=== PATIENT | female | born 1970 | race Caucasian/White ===

== ENCOUNTER 2016-12-09 07:06 | Emergency (ER) | payer OTHER ==
[~2016-12-09 07:06] MED LIST: ATEN50TA PO; ATOR20TA58 PO; FURO20TA3 PO; LEVE500T56 PO; LEVO50TA5 PO; LISI40TA PO; METF500T4 PO; SERT100T PO; SPIR50TA2 PO
[2016-12-09] MEDS ORDERED: ADENOSINE 6 MG/2 ML VIAL IV ONE (07:20)
[2016-12-09] MEDS: ADENOSINE 6 MG/2 ML VIAL IV ONE (07:33)
[2016-12-09 07:58] LABS: HEMOGLOBIN ISTAT 14.3 gm/dL; POTASSIUM ISTAT 3.6 mmol/L (3.5-5.0)
[2016-12-09 07:58] LABS: BASO # 0.1 x10^3/uL (0.0-0.2); BASO % 1 % (0-3); EOS # 0.2 x10^3/uL (0.0-0.7); EOS % 2 % (0-3); HEMATOCRIT 41.9 % (36.0-47.0); HEMOGLOBIN 13.6 g/dL (12.0-15.5); LYMPH # 2.5 x10^3/uL (1.0-4.8); LYMPH % 27 % (24-48); MEAN CORPUSCULAR HEMOGLOBIN 27 pg (25-35); MEAN CORPUSCULAR HGB CONC 33 g/dL (31-37); MEAN CORPUSCULAR VOLUME 83 fL (79-100); MONO # 0.5 x10^3/uL (0.0-1.1); MONO % 5 % (0-9); NEUT # 5.9 x10^3uL (1.8-7.7); NEUT % 65 % (31-73); PLATELET COUNT 328 x10^3/uL (140-400); RED BLOOD COUNT 5.05 x10^6/uL (3.50-5.40); RED CELL DISTRIBUTION WIDTH 15.3 % (11.5-14.5); WHITE BLOOD COUNT 9.1 x10^3/uL (4.0-11.0)
--- NOTE | 2016-12-09 08:21 | EKG ---
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
--- NOTE | 2016-12-09 08:22 | EKG ---
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
[2016-12-09 08:30] VITALS: BP 110/63
--- NOTE | 2016-12-13 07:38 | ED.ADGEN ---
Past History Past Medical History: Depression, Diabetes, Hypertension, Seizure, Other Past Surgical History: Other Alcohol Use: Rarely Drug Use: None Adult General Chief Complaint Chief Complaint Palpitations HPI HPI Patient is a [ She has a 46-year-old female with history of PSVT who presents with palpitations , abrupt onset approximately 1 hour prior to ED arrival. Patient has tried various techniques to slow heart rate which have been unsuccessful. She is compliant with all her medications. Denies chest pain, shortness of breath, dizziness or lightheadedness. No other symptoms or complaints. Review of Systems Review of Systems ROS as per HPI. Current Medications Current Medications Current Medications Medications (Trade) Dose Ordered Sig/Mecca Start Time Stop Time Status Last Admin Dose Admin Adenosine (Adenocard) 12 mg 1X ONCE 12/09/16 08:00 12/09/16 08:01 DC 12/09/16 07:33 12 MG Allergies Allergies Allergies Coded Allergies Type Severity Reaction Last Updated Verified No Known Drug Allergies 04/22/16 No Physical Exam Physical Exam Constitutional: Well developed, well nourished, no acute distress, non-toxic appearance. HENT: Normocephalic, atraumatic, bilateral external ears normal, oropharynx moist, no oral exudates, nose normal. Eyes: PERRLA, EOMI, conjunctiva normal. Neck: Normal range of motion, no tenderness, supple. Cardiovascular: Tachycardia. Lungs & Thorax: Bilateral breath sounds clear to auscultation. Abdomen: Bowel sounds normal, soft, no tenderness. Skin: Warm, dry, no erythema. Back: No tenderness. Extremities: No tenderness. Neurologic: Alert and oriented X 3, normal motor function, normal sensory function, no focal deficits noted. Psychologic: Affect normal, judgement normal, mood normal. Current Patient Data Vital Signs Vital Signs Date Time Temp Pulse Resp B/P Pulse Ox O2 Delivery O2 Flow Rate FiO2 12/09/16 08:30 88 16 110/63 98 12/09/16 07:06 97.9 Room Air Lab Results Laboratory Tests Test 12/09/16 07:35 12/09/16 07:43 12/09/16 07:46 White Blood Count 9.1x10^3/uL (4.0-11.0) Red Blood Count 5.05x10^6/uL (3.50-5.40) Hemoglobin 13.6g/dL (12.0-15.5) Hematocrit 41.9% (36.0-47.0) Mean Corpuscular Volume 83fL (79-100) Mean Corpuscular Hemoglobin 27pg (25-35) Mean Corpuscular Hemoglobin Concent 33g/dL (31-37) Red Cell Distribution Width 15.3% (11.5-14.5) H Platelet Count 328x10^3/uL (140-400) Neutrophils (%) (Auto) 65% (31-73) Lymphocytes (%) (Auto) 27% (24-48) Monocytes (%) (Auto) 5% (0-9) Eosinophils (%) (Auto) 2% (0-3) Basophils (%) (Auto) 1% (0-3) Neutrophils # (Auto) 5.9x10^3uL (1.8-7.7) Lymphocytes # (Auto) 2.5x10^3/uL (1.0-4.8) Monocytes # (Auto) 0.5x10^3/uL (0.0-1.1) Eosinophils # (Auto) 0.2x10^3/uL (0.0-0.7) Basophils # (Auto) 0.1x10^3/uL (0.0-0.2) POC Hemoglobin 14.3gm/dL POC Hematocrit 42% POC Sodium 137mmol/L (135-145) POC Potassium 3.6mmol/L (3.5-5.0) POC Chloride 99mmol/L (98-110) POC Total CO2 20mmol/L (23-32) L Anion Gap 23mmol/L (6-14) H POC Blood Urea Nitrogen 12mg/dL (8-26) POC Creatinine 0.9mg/dL (0.5-1.4) Glucose Level 212mg/dL (60-99) H POC Ionized Calcium (Bryan) 1.13mmol/L (1.13-1.32) POC Troponin I 0.01ng/ml (<0.08) EKG EKG [EKG: SVT EKG #2: NSR] Radiology/Procedures Radiology/Procedures [] Impressions: PSVT Course & Med Decision Making Course & Med Decision Making Pertinent Labs and Imaging studies reviewed. (See chart for details) [Successful cardioversion. PCP follow up. ] Final Impression Final Impression SVT] Problems: Rose Disclaimer Rose Disclaimer This electronic medical record was generated, in whole or in part, using a voice recognition dictation system. SAMMY RAMIREZ DO Dec 13, 2016 07:38
== END 2016-12-09 08:30 | disposition home or self-care (01) ==
LOC: ER 07:06
DX: I47.1 Supraventricular tachycardia (principal); I10 Essential (primary) hypertension; E11.9 Type 2 diabetes mellitus without complications
CPT/HCPCS: 36415; 80047; 84484; 85027; 93005; 96374; 99284; J0153

== ENCOUNTER 2017-07-09 00:17 | Observation (INO) | payer OTHER ==
[~2017-07-09] VITALS: Ht 175.3 cm; Wt 169.4 kg
[2017-07-09] MEDS ORDERED: ASPIRIN 81 MG TAB.CHEW PO ONE (00:45)
[2017-07-09] MEDS ORDERED: ADENOSINE 6 MG/2 ML VIAL IV ONE ×2 (00:45)
[2017-07-09] MEDS ORDERED: ENOXAPARIN ** NOTE DOSE ** SYRINGE SQ ONE (01:30)
[2017-07-09] MEDS ORDERED: METOPROLOL TARTRATE 5 MG/5 ML VIAL. IV ONE (01:30)
[2017-07-09 01:55] LABS: BASO % 1 % (0-3); EOS # 0.2 x10^3/uL (0.0-0.7); EOS % 2 % (0-3); HEMATOCRIT 36.8 % (36.0-47.0); HEMOGLOBIN 12.6 g/dL (12.0-15.5); LYMPH # 2.3 x10^3/uL (1.0-4.8); LYMPH % 36 % (24-48); MEAN CORPUSCULAR HEMOGLOBIN 28 pg (25-35); MEAN CORPUSCULAR HGB CONC 34 g/dL (31-37); MEAN CORPUSCULAR VOLUME 83 fL (79-100); MONO # 0.4 x10^3/uL (0.0-1.1); MONO % 7 % (0-9); NEUT # 3.4 x10^3uL (1.8-7.7); NEUT % 54 % (31-73); PLATELET COUNT 221 x10^3/uL (140-400); RED BLOOD COUNT 4.43 x10^6/uL (3.50-5.40); RED CELL DISTRIBUTION WIDTH 15.2 % (11.5-14.5); WHITE BLOOD COUNT 6.3 x10^3/uL (4.0-11.0)
[2017-07-09 02:02] LABS: ALBUMIN 3.2 g/dL (3.4-5.0); ALBUMIN/GLOBULIN RATIO 0.8 (1.0-1.7); ALK PHOS 118 U/L (46-116); ALT (SGPT) 29 U/L (14-59); ANION GAP 13 (6-14); AST (SGOT) 22 U/L (15-37); BLOOD UREA NITROGEN 20 mg/dL (7-20); BUN/CREATININE RATIO 14 (6-20); CALCIUM 8.8 mg/dL (8.5-10.1); CARBON DIOXIDE 24 mmol/L (21-32); CHLORIDE 101 mmol/L (98-107); CREATINE KINASE 57 U/L (26-192); CREATININE 1.4 mg/dL (0.6-1.0); DIRECT BILIRUBIN 0.1 mg/dL (0.0-0.2); GFR 40.5; GLUCOSE 203 mg/dL (70-99); LIPASE 192 U/L (73-393); MAGNESIUM 1.6 mg/dL (1.8-2.4); POTASSIUM 3.3 mmol/L (3.5-5.1); SODIUM 138 mmol/L (136-145); TOTAL BILIRUBIN 0.4 mg/dL (0.2-1.0); TOTAL PROTEIN 7.1 g/dL (6.4-8.2)
[2017-07-09] MEDS ORDERED: IV NORMAL SALINE 1,000ML 1,000 ML IV ONE (02:15)
[2017-07-09] MEDS ORDERED: MAGNESIUM HYDROXIDE 2,400 MG/30 ML ORAL.SUSP. PO ONE (02:30)
[2017-07-09] MEDS ORDERED: POTASSIUM CHLORIDE 20 MEQ/15 ML ORAL LIQUID. PO ONE (02:30)
[2017-07-09] MEDS ORDERED: CONTRAST GIVEN MC PRN (04:00)
[2017-07-09] MEDS ORDERED: IOHEXOL 300 MG/ML 75 ML VIAL. IV ONE (04:00)
--- NOTE | 2017-07-09 04:20 | ED.ADGEN ---
Past History Past Medical History: Arrhythmia, CHF, Depression, Diabetes, Hypertension, Seizure Past Surgical History: Other Alcohol Use: None Drug Use: None Adult General Chief Complaint Chief Complaint ".. I ve got a fast heart rate.. It came on all sudden... I ve had it before.. and they gave me meds IV.. and it stopped.. they told me I could get some ablation to prevent it.. but right now I am on meds for it...".." I got some chest discomfort this time..>" [facility] HPI Patient is a 47 year old female who presents with sudden onset of SVT, CP and dyspnea. Pt. has previous history of SVT, diastolic dysfunction, CHF, hypertension, seizure disorder and diabetes. Patient on presentation has heart rate in the 170 range. Patient monitor is consistent with supraventricular tachycardia. Patient denies any changes in meds for noncompliance. Patient denies any excessive intake of caffeine. Patient was previously followed with for cardiology and follows with Dr. Grove as primary. Procedure note- patient received 6 mg of adenosine IV push with resolution of her supraventricular tachycardia to a sinus tachycardia at 108 shortly after IV established and on monitor. Patient however remained borderline hypotensive so further workup and IV fluid bolus. Review of Systems Review of Systems Constitutional: Denies fever or chills [] Eyes: Denies change in visual acuity, redness, or eye pain [] HENT: Denies nasal congestion or sore throat [] Respiratory: Complaints of shortness of breath [] Cardiovascular: No additional information not addressed in HPI []complaints of dyspnea, chest discomfort and tachycardia GI: Denies abdominal pain, nausea, vomiting, bloody stools or diarrhea [] : Denies dysuria or hematuria [] Musculoskeletal: Denies back pain or joint pain [] Integument: Denies rash or skin lesions [] Neurologic: Denies headache, focal weakness or sensory changes [] Endocrine: Denies polyuria or polydipsia [] Family History Family History Noncontributory Current Medications Current Medications Current Medications Medications (Trade) Dose Ordered Sig/Mecca Start Time Stop Time Status Last Admin Dose Admin Adenosine (Adenocard) 12 mg 1X ONCE 07/09/17 00:45 07/09/17 00:46 DC Aspirin (Children'S Aspirin) 324 mg 1X ONCE 07/09/17 00:45 07/09/17 00:46 DC 07/09/17 01:28 324 MG Enoxaparin Sodium (Lovenox 80mg Syringe) 160 mg 1X ONCE 07/09/17 01:30 07/09/17 01:31 DC 07/09/17 01:56 160 MG Info (Do NOT chart on this entry -- for MONITORING) 1 each PRN DAILY PRN 07/09/17 04:00 07/09/17 16:08 DC Iohexol (Omnipaque 300 Mg/ml) 75 ml 1X ONCE 07/09/17 04:00 07/09/17 04:01 DC 07/09/17 04:17 75 ML Magnesium Hydroxide (Milk Of Magnesia) 2,400 mg 1X ONCE 07/09/17 02:30 07/09/17 02:57 DC 07/09/17 02:46 2,400 MG Metoprolol Tartrate (Lopressor) 5 mg 1X ONCE 07/09/17 01:30 07/09/17 01:31 DC 07/09/17 05:03 2.5 MG Potassium Chloride (KCl Oral Soln) 40 meq 1X ONCE 07/09/17 02:30 07/09/17 02:57 DC 07/09/17 02:46 40 MEQ Sodium Chloride 1,000 ml @ 1,000 mls/hr 1X ONCE 07/09/17 02:15 07/09/17 03:14 DC 07/09/17 02:15 1,000 MLS/HR See nursing for home meds Allergies Allergies Allergies Coded Allergies Type Severity Reaction Last Updated Verified No Known Drug Allergies 04/22/16 No Physical Exam Physical Exam Constitutional: in acute distress, non-toxic appearance. [] HENT: Normocephalic, atraumatic, bilateral external ears normal, oropharynx moist, no oral exudates, nose normal. [] Eyes: PERRLA, EOMI, conjunctiva normal, no discharge. [] Neck: Normal range of motion, no tenderness, supple, no stridor. [] Cardiovascular: Supraventricular tachycardia by monitor,no murmur [] Lungs & Thorax: Bilateral breath sounds clear to auscultation [] Abdomen: Bowel sounds normal, soft, no tenderness, no masses, no pulsatile masses. [Morbidly obese. Skin: Warm, diaphoretic, no erythema, no rash. [] Back: No tenderness, no CVA tenderness. [] Extremities: No tenderness, no cyanosis, no clubbing, ROM intact, ankle edema. [ ] Neurologic: Alert and oriented X 3, normal motor function, normal sensory function, no focal deficits noted. [] Psychologic: Affect anxious, judgement normal, mood normal. [] Current Patient Data Vital Signs Vital Signs Date Time Temp Pulse Resp B/P (MAP) Pulse Ox O2 Delivery O2 Flow Rate FiO2 07/09/17 05:27 81 18 109/68 (82) 98 07/09/17 00:17 98.1 Lab Results Laboratory Tests Test 07/09/17 01:20 07/09/17 04:25 White Blood Count 6.3 x10^3/uL (4.0-11.0) Red Blood Count 4.43 x10^6/uL (3.50-5.40) Hemoglobin 12.6 g/dL (12.0-15.5) Hematocrit 36.8 % (36.0-47.0) Mean Corpuscular Volume 83 fL (79-100) Mean Corpuscular Hemoglobin 28 pg (25-35) Mean Corpuscular Hemoglobin Concent 34 g/dL (31-37) Red Cell Distribution Width 15.2 % (11.5-14.5) H Platelet Count 221 x10^3/uL (140-400) Neutrophils (%) (Auto) 54 % (31-73) Lymphocytes (%) (Auto) 36 % (24-48) Monocytes (%) (Auto) 7 % (0-9) Eosinophils (%) (Auto) 2 % (0-3) Basophils (%) (Auto) 1 % (0-3) Neutrophils # (Auto) 3.4 x10^3uL (1.8-7.7) Lymphocytes # (Auto) 2.3 x10^3/uL (1.0-4.8) Monocytes # (Auto) 0.4 x10^3/uL (0.0-1.1) Eosinophils # (Auto) 0.2 x10^3/uL (0.0-0.7) Basophils # (Auto) 0.0 x10^3/uL (0.0-0.2) Prothrombin Time 11.4 SEC (9.4-11.4) Prothrombin Time INR 1.1 (0.9-1.1) PTT 24 SEC (23-33) D-Dimer (Brittany) 3.02 mg/L (0.00-0.50) H Sodium Level 138 mmol/L (136-145) Potassium Level 3.3 mmol/L (3.5-5.1) L Chloride Level 101 mmol/L (98-107) Carbon Dioxide Level 24 mmol/L (21-32) Anion Gap 13 (6-14) Blood Urea Nitrogen 20 mg/dL (7-20) Creatinine 1.4 mg/dL (0.6-1.0) H Estimated GFR (Cockcroft-Gault) 40.5 BUN/Creatinine Ratio 14 (6-20) Glucose Level 203 mg/dL (70-99) H Calcium Level 8.8 mg/dL (8.5-10.1) Magnesium Level 1.6 mg/dL (1.8-2.4) L Total Bilirubin 0.4 mg/dL (0.2-1.0) Direct Bilirubin 0.1 mg/dL (0.0-0.2) Aspartate Amino Transferase (AST) 22 U/L (15-37) Alanine Aminotransferase (ALT) 29 U/L (14-59) Alkaline Phosphatase 118 U/L (46-116) H Creatine Kinase 57 U/L (26-192) Creatine Kinase MB (Mass) < 0.5 ng/mL (0.0-3.6) Creatine Kinase MB Relative Index 0.9 % (0-4) Troponin I Quantitative < 0.017 ng/mL (0-0.055) CI-Oqq-Z-Type Natriuretic Peptide 106 pg/mL (0-124) Total Protein 7.1 g/dL (6.4-8.2) Albumin 3.2 g/dL (3.4-5.0) L Albumin/Globulin Ratio 0.8 (1.0-1.7) L Lipase 192 U/L (73-393) Thyroid Stimulating Hormone (TSH) 5.858 uIU/mL (0.358-3.740) Urine Collection Type Unknown Urine Color Straw Urine Clarity Hazy Urine pH 6.5 Urine Specific [place] 1.010 Urine Protein Neg (NEG-TRACE) Urine Glucose (UA) Neg mg/dL (NEG) Urine Ketones (Stick) Neg mg/dL (NEG) Urine Blood Trace (NEG) Urine Nitrite Neg (NEG) Urine Bilirubin Neg (NEG) Urine Urobilinogen Dipstick 0.2 mg/dL (0.2 mg/dL) Urine Leukocyte Esterase Large (NEG) Urine RBC 3-5 /HPF (0-2) Urine WBC 11-20 /HPF (0-4) Urine Squamous Epithelial Cells Mod /LPF Urine Bacteria Few /HPF (0-FEW) Urine Mucus Slight /LPF Urine Opiates Screen Neg (NEG) Urine Methadone Screen Neg (NEG) Urine Barbiturates Neg (NEG) Urine Phencyclidine Screen Neg (NEG) Urine Amphetamine/Methamphetamine Neg (NEG) Urine Benzodiazepines Screen Neg (NEG) Urine Cocaine Screen Neg (NEG) Urine Cannabinoids Screen Neg (NEG) Urine Ethyl Alcohol Neg (NEG) EKG EKG My interpretation of initial EKG shows a supraventricular tachycardia heart 67 bpm. Does have a strain pattern. My interpretation of second EKG shows a sinus tachycardia at 108. No findings of acute morphology. Radiology/Procedures Radiology/Procedures My interpretation of chest x-ray shows borderline cardiomegaly. Mild cephalization.[] CT chest shows a left upper lobe pulmonary embolism Course & Med Decision Making Course & Med Decision Making Pertinent Labs and Imaging studies reviewed. (See chart for details) Discussed presentation, testing and treatment plan with Dr. Roa. Wiil admit for US legs, cardiology consult and serial trops. . [] Final Impression Final Impression 1. Supraventricular tachycardia 2. Diabetes 3. Hypokalemia 4. Elevated creatinine 5. Elevated d-dimer[] 6. Left upper lobe pulmonary embolism Problems: Dragon Disclaimer Dragon Disclaimer This electronic medical record was generated, in whole or in part, using a voice recognition dictation system. MOSES VELÁSQUEZ MD Jul 09, 2017 04:20
[2017-07-09 05:00] LABS: BARBITURATES NEG (NEG); BENZODIAZEPINES NEG (NEG); BILIRUBIN,URINE NEG (NEG); CANNABINOIDS NEG (NEG); CLARITY,URINE HAZY; COCAINE NEG (NEG); COLOR,URINE STRAW; GLUCOSE,URINE NEG (NEG); METHADONE NEG (NEG); NITRITE,URINE NEG (NEG); OPIATES NEG (NEG); PHENCYCLIDINE NEG (NEG); UROBILINOGEN,URINE 0.2 mg/dL (0.2 mg/dL)
[2017-07-09 05:01] LABS: BACTERIA,URINE FEW /HPF (0-FEW); SQUAMOUS EPITHELIAL CELL,UR MOD /LPF
[2017-07-09 05:05] LABS: AMPHETAMINE/METHAMPHETAMINE NEG (NEG)
--- NOTE | 2017-07-09 05:47 | RAD ---
CT angiography chest with contrast. HISTORY: Shortness of breath, tachycardia, elevated d-dimer. TECHNIQUE: Helical CT imaging of the chest with 3-D MIP reconstructions of the pulmonary arteries to assess for emboli with 75 mL Isovue-370 intravenous contrast. Chest findings: Splenomegaly has a length of at least 16 cm extends outside the [id number]. Thoracic aorta and esophagus unremarkable. Heart size upper limits of normal. Lungs demonstrate inferior wall of the left upper lobe pulmonary artery axial images 30-41, coronal images 51-56 and sagittal images 33-37 is a 2 cm linear hypodensity a portion of which appears to be outside the vessel although some branches superiorly from the vessel appear to be in continuity with this hypodensity and may be excluded which could indicate eccentric thromboembolus of the upper lobe pulmonary artery. No large central pulmonary artery embolus. There is diffuse mosaic attenuation of the lungs which can be indicative of areas of air trapping. At the left upper lobe peripheral of the possible nonocclusive pulmonary embolus there is a wedge-shaped area of greater lucency which could indicate either air-trapping or decreased subsegmental pulmonary perfusion from thromboembolus. Bones unremarkable. IMPRESSION: 1. 2 cm perivascular density possibly a nodule of the left upper lobe along the undersurface of the left upper lobe pulmonary artery, which appears to be associated with nonocclusive pulmonary thromboembolus. Consider follow-up CT imaging in 3 months for the nodule. 2. Diffuse pulmonary mosaic attenuation could indicate areas of air trapping from asthma or bronchiolitis. Separately the left upper lobe peripheral of the presumed thromboembolus demonstrates a dominant area of wedge-shaped lucency, while could be due to air trapping, could also be due to oligemia from thromboembolus. 3. Splenomegaly. Results called to Dr. Shields at 5:40 AM July 09, 2017. Exposure: One or more of the following individualized dose reduction techniques were utilized for this examination: 1. Automated exposure control 2. Adjustment of the mA and/or kV according to patient size 3. Use of iterative reconstruction technique Electronically signed by: Vitaly Hernandez MD (07/09/2017 5:43 AM) [facility]
[2017-07-09 06:32] VITALS: BP 145/76
[2017-07-09] MEDS ORDERED: SERT100T8 PO (07:13)
[2017-07-09] MEDS ORDERED: SPIR25TA3 PO (07:13)
[2017-07-09] MEDS ORDERED: LISI-334 PO (07:13)
[2017-07-09] MEDS ORDERED: PNEUMOC CONJ VACC 23-VALENT 0.5 ML VIAL. VAX IM ONE (07:30)
[2017-07-09] MEDS ORDERED: LEVE500T56 PO (07:30)
--- NOTE | 2017-07-09 08:54 | RAD ---
AP portable chest radiograph 07/09/2017 Clinical History: Chest pain and heart palpitations. An AP portable erect digital radiograph of the chest was obtained. Comparison study is dated 08/02/2016. The cardiac and mediastinal silhouettes are within normal limits in size and configuration. No acute pulmonary infiltrate is seen. No pleural effusion or pneumothorax is noted. The osseous structures are grossly intact. Impression: No acute abnormality is seen.
[2017-07-09] MEDS ORDERED: LEVOTHYROXINE 50 MCG TABLET PO SCH (09:00)
[2017-07-09] MEDS ORDERED: levETIRAcetam 500 MG TABLET PO SCH (09:00)
[2017-07-09] MEDS ORDERED: MAGNESIUM SULFATE 2GM 50 ML IV ONE (10:15)
[2017-07-09 11:33] LABS: CALCIUM 8.8 mg/dL (8.5-10.1); GFR 59.7
[2017-07-09 11:35] VITALS: BP 115/76
[2017-07-09 11:45] VITALS: BP 115/76
[2017-07-09] MEDS ORDERED: FUROSEMIDE 20 MG TABLET PO SCH (11:45)
[2017-07-09] MEDS ORDERED: SERTRALINE 100 MG TABLET. PO SCH (11:45)
[2017-07-09] MEDS ORDERED: LISINOPRIL 20 MG TABLET PO SCH (11:45)
[2017-07-09] MEDS ORDERED: ATENOLOL 50 MG TABLET PO SCH (11:45)
--- NOTE | 2017-07-09 12:18 | PDOC2 ---
CONSULT Date of Admission DATE: 07/09/17 TIME: 12:18 Reason for Consult: Supraventricular tachycardia Referring Physician: Dr. Villalobos Chief Complaint Palpitations Source: Chart review, Patient Problem List Problems Medical Problems: (1) SVT (supraventricular tachycardia) Status: Acute History of Present Illness 47-year-old female with history of paroxysmal supraventricular tachycardia presented with palpitations and was diagnosed with supraventricular tachycardia in the emergency room. She was given intravenous adenosine with conversion to sinus rhythm. Patient stated that she has had several episodes of palpitations, approximately once a week that usually subside with vagal maneuvers. She denied any chest pain, orthopnea/PND or syncope. Past Medical History Paroxysmal supraventricular tachycardia Hypertension Diabetes metastatic to Hyperlipidemia Hypothyroidism Sleep apnea Obesity Social History Patient denied any smoking, alcohol or drug use Current Medications Current Medications Adenosine (Adenocard) 6 mg 1X ONCE IV Last administered on 07/09/17 00:47; Start 07/09/17 at 00:45; Stop 07/09/17 at 00:46; Status DC Adenosine (Adenocard) 12 mg 1X ONCE IV ; Start 07/09/17 at 00:45; Stop at 00:46; Status DC Aspirin (Children'S Aspirin) 324 mg 1X ONCE PO Last administered on 01:28; Start 07/09/17 at 00:45; Stop 07/09/17 at 00:46; Status DC Enoxaparin Sodium (Lovenox 80mg Syringe) 160 mg 1X ONCE SQ Last administered on 07/09/17 01:56; Start 07/09/17 at 01:30; Stop 07/09/17 at 01:31; Status DC Metoprolol Tartrate (Lopressor) 5 mg 1X ONCE IV Last administered on 05:03; Start 07/09/17 at 01:30; Stop 07/09/17 at 01:31; Status DC Sodium Chloride 1,000 ml @ 1,000 mls/hr 1X ONCE IV Last administered on 07/09 02:15; Start 07/09/17 at 02:15; Stop 07/09/17 at 03:14; Status DC Potassium Chloride (KCl Oral Soln) 40 meq 1X ONCE PO Last administered on 02:46; Start 07/09/17 at 02:30; Stop 07/09/17 at 02:57; Status DC Magnesium Hydroxide (Milk Of Magnesia) 2,400 mg 1X ONCE PO Last administered on 07/09/17 02:46; Start 07/09/17 at 02:30; Stop 07/09/17 at 02:57; Status DC Iohexol (Omnipaque 300 Mg/ml) 75 ml 1X ONCE IV Last administered on 04:17; Start 07/09/17 at 04:00; Stop 07/09/17 at 04:01; Status DC Info (Do NOT chart on this entry -- for MONITORING) 1 each PRN DAILY PRN MC SEE COMMENTS; Start 07/09/17 at 04:00; Stop 07/11/17 at 03:59 Pneumococcal Polyvalent Vaccine (Pneumovax 23) 0.5 ml ONCE ONCE VAX IM ; Start 07/09/17 at 07:30; Stop 07/09/17 at 07:31; Status DC Levetiracetam (Keppra) 500 mg BID PO Last administered on 07/09/17 09:38; Start 07/09/17 at 09:00 Levothyroxine Sodium (Synthroid) 50 mcg DAILYAC PO Last administered on 09:38; Start 07/09/17 at 09:00 Metformin HCl (Glucophage) 500 mg BIDWMEALS PO ; Start 07/09/17 at 17:00; Stop 07/09/17 at 17:00; Status DC Metformin HCl (Glucophage) 500 mg BIDWMEALS PO ; Start 07/11/17 at 08:00 Magnesium Sulfate 50 ml @ 25 mls/hr 1X ONCE IV ; Start 07/09/17 at 10:15; Stop 07/09/17 at 12:14; Status DC Apixaban (Eliquis) 10 mg BID PO Last administered on 07/09/17 11:55; Start 07/09/17 at 13:00; Stop 07/15/17 at 12:59 Atenolol (Tenormin) 50 mg DAILY PO ; Start 07/09/17 at 11:45 Atorvastatin Calcium (Lipitor) 20 mg HS PO ; Start 07/09/17 at 21:00 Lisinopril (Prinivil) 20 mg DAILY PO ; Start 07/09/17 at 11:45 Sertraline HCl (Zoloft) 200 mg DAILY PO Last administered on 07/09/17t 11:55; Start 07/09/17 at 11:45 Spironolactone (Aldactone) 25 mg BID PO ; Start 07/10/17 at 11:45 Furosemide (Lasix) 20 mg DAILY PO ; Start 07/09/17 at 11:45 Active Scripts Active Reported Keppra (Levetiracetam) 500 Mg Tablet 1 Tab PO BID LAST DOSE GIVEN: DATE: TIME: NEXT DOSE DUE: DATE: TIME: Sertraline Hcl 100 Mg Tablet 200 Mg PO DAILY LAST DOSE GIVEN: DATE: TIME: NEXT DOSE DUE: DATE: TIME: Lisinopril 20 Mg Tablet 20 Mg PO DAILY LAST DOSE GIVEN: DATE: TIME: NEXT DOSE DUE: DATE: TIME: Spironolactone 25 Mg Tablet 25 Mg PO BID LAST DOSE GIVEN: DATE: TIME: NEXT DOSE DUE: DATE: TIME: Levothyroxine Sodium 50 Mcg Tablet 1 Tab PO DAILY LAST DOSE GIVEN: DATE: TIME: NEXT DOSE DUE: DATE: TIME: Atenolol 50 Mg Tablet 1 Tab PO DAILY LAST DOSE GIVEN: DATE: TIME: NEXT DOSE DUE: DATE: TIME: Furosemide 20 Mg Tablet 1 Tab PO DAILY LAST DOSE GIVEN: DATE: TIME: NEXT DOSE DUE: DATE: TIME: Atorvastatin Calcium 20 Mg Tablet 1 Tab PO DAILY LAST DOSE GIVEN: DATE: TIME: NEXT DOSE DUE: DATE: TIME: Metformin Hcl 500 Mg Tablet 500 Mg PO BIDWMEALS LAST DOSE GIVEN: DATE: TIME: NEXT DOSE DUE: DATE: TIME: Allergies: Coded Allergies: No Known Drug Allergies (Unverified , 04/22/16) PSYCHOLOGICAL ROS: No: Hallucinations Eyes: No: Loss of vision HEENT: No: Epistaxis ENDOCRINE: YES: Palpitations Respiratory: No: Orthopnea Cardiovascular: No: Chest Pain Gastrointestinal: No: Vomiting Genitourinary: No: Dysuria Neurological: No: Seizures Skin: No: Rash General: Alert, Oriented X3 HEENT: Atraumatic, PERRLA Lungs: Clear to auscultation Heart: Regular rate Abdomen: Soft Extremities: No edema Psych/Mental Status: Mood NL VITALS Vital Signs Date Time Temp Pulse Resp B/P (MAP) Pulse Ox O2 Delivery O2 Flow Rate FiO2 07/09/17 06:32 98.2 77 20 145/76 (99) 95 Labs Laboratory Tests Test 07/09/17 01:20 07/09/17 04:25 07/09/17 07:57 07/09/17 11:09 White Blood Count 6.3 x10^3/uL (4.0-11.0) Red Blood Count 4.43 x10^6/uL (3.50-5.40) Hemoglobin 12.6 g/dL (12.0-15.5) Hematocrit 36.8 % (36.0-47.0) Mean Corpuscular Volume 83 fL (79-100) Mean Corpuscular Hemoglobin 28 pg (25-35) Mean Corpuscular Hemoglobin Concent 34 g/dL (31-37) Red Cell Distribution Width 15.2 % (11.5-14.5) Platelet Count 221 x10^3/uL (140-400) Neutrophils (%) (Auto) 54 % (31-73) Lymphocytes (%) (Auto) 36 % (24-48) Monocytes (%) (Auto) 7 % (0-9) Eosinophils (%) (Auto) 2 % (0-3) Basophils (%) (Auto) 1 % (0-3) Neutrophils # (Auto) 3.4 x10^3uL (1.8-7.7) Lymphocytes # (Auto) 2.3 x10^3/uL (1.0-4.8) Monocytes # (Auto) 0.4 x10^3/uL (0.0-1.1) Eosinophils # (Auto) 0.2 x10^3/uL (0.0-0.7) Basophils # (Auto) 0.0 x10^3/uL (0.0-0.2) Prothrombin Time 11.4 SEC (9.4-11.4) Prothromb Time International Ratio 1.1 (0.9-1.1) Activated Partial Thromboplast Time 24 SEC (23-33) D-Dimer (Brittany) 3.02 mg/L (0.00-0.50) Sodium Level 138 mmol/L (136-145) 135 mmol/L (136-145) Potassium Level 3.3 mmol/L (3.5-5.1) 4.0 mmol/L (3.5-5.1) Chloride Level 101 mmol/L (98-107) 102 mmol/L (98-107) Carbon Dioxide Level 24 mmol/L (21-32) 26 mmol/L (21-32) Anion Gap 13 (6-14) 7 (6-14) Blood Urea Nitrogen 20 mg/dL (7-20) 15 mg/dL (7-20) Creatinine 1.4 mg/dL (0.6-1.0) 1.0 mg/dL (0.6-1.0) Estimated GFR (Cockcroft-Gault) 40.5 59.7 BUN/Creatinine Ratio 14 (6-20) Glucose Level 203 mg/dL (70-99) 176 mg/dL (70-99) Calcium Level 8.8 mg/dL (8.5-10.1) 8.8 mg/dL (8.5-10.1) Magnesium Level 1.6 mg/dL (1.8-2.4) 2.2 mg/dL (1.8-2.4) Total Bilirubin 0.4 mg/dL (0.2-1.0) Direct Bilirubin 0.1 mg/dL (0.0-0.2) Aspartate Amino Transf (AST/SGOT) 22 U/L (15-37) Alanine Aminotransferase (ALT/SGPT) 29 U/L (14-59) Alkaline Phosphatase 118 U/L (46-116) Creatine Kinase 57 U/L (26-192) Creatine Kinase MB (Mass) < 0.5 ng/mL (0.0-3.6) Creatine Kinase MB Relative Index 0.9 % (0-4) Troponin I Quantitative < 0.017 ng/mL (0-0.055) LG-Kuz-Y-Type Natriuretic Peptide 106 pg/mL (0-124) Total Protein 7.1 g/dL (6.4-8.2) Albumin 3.2 g/dL (3.4-5.0) Albumin/Globulin Ratio 0.8 (1.0-1.7) Lipase 192 U/L (73-393) Thyroid Stimulating Hormone (TSH) 5.858 uIU/mL (0.358-3.740) Urine Collection Type Unknown Urine Color Straw Urine Clarity Hazy Urine pH 6.5 Urine Specific [place] 1.010 Urine Protein Neg (NEG-TRACE) Urine Glucose (UA) Neg mg/dL (NEG) Urine Ketones (Stick) Neg mg/dL (NEG) Urine Blood Trace (NEG) Urine Nitrite Neg (NEG) Urine Bilirubin Neg (NEG) Urine Urobilinogen Dipstick 0.2 mg/dL (0.2 mg/dL) Urine Leukocyte Esterase Large (NEG) Urine RBC 3-5 /HPF (0-2) Urine WBC 11-20 /HPF (0-4) Urine Squamous Epithelial Cells Mod /LPF Urine Bacteria Few /HPF (0-FEW) Urine Mucus Slight /LPF Urine Opiates Screen Neg (NEG) Urine Methadone Screen Neg (NEG) Urine Barbiturates Neg (NEG) Urine Phencyclidine Screen Neg (NEG) Urine Amphetamine/Methamphetamine Neg (NEG) Urine Benzodiazepines Screen Neg (NEG) Urine Cocaine Screen Neg (NEG) Urine Cannabinoids Screen Neg (NEG) Urine Ethyl Alcohol Neg (NEG) Glucose (Fingerstick) 158 mg/dL (70-99) Test 07/09/17 11:58 Glucose (Fingerstick) 147 mg/dL (70-99) Assessment/Plan 1. Paroxysmal supraventricular tachycardia: Presently in sinus rhythm. Change beta blockers to calcium channel blockers. Recent 2-D echo showed normal LV systolic function. We will refer patient to electrophysiology service for possible ablation therapy. 2. Hypertension: Well-controlled 3. Diabetes mellitus type 2: Treated per IM 4. Pulmonary embolism: Continue Eliquis Thank you for your consultation Problems: RIVAS HAINES MD Jul 09, 2017 12:18
[2017-07-09] MEDS ORDERED: APIXABAN 5 MG TABLET. PO SCH (13:00)
--- NOTE | 2017-07-09 13:52 | HP ---
ADMIT DATE: 07/09/2017 REASON FOR ADMISSION: SVT. HISTORY OF PRESENT ILLNESS: This is a 47-year-old female that had a sudden onset of rapid tachycardia, was diagnosed with SVT and to the Emergency Room, she received adenosine in the ER, which brought her heart rate down. This is not the first time that she has had this, but she was also short of breath and a little bit dizzy. It appears she also has a pulmonary embolism. She had been having some right hip pain, had some aggressive physical therapy yesterday and then developed SVT and shortness of breath, but it is not clear whether these are related. PAST MEDICAL HISTORY: She has had an admission in 07/2016 for seizure. She has sleep apnea, but does not use CPAP, hypertension, diabetes, hyperlipidemia, depression, hypothyroidism, morbid obesity. Brain scan shows severe atrophy and mild chronic small vessel matter disease. MEDICATIONS: Reviewed. ALLERGIES: None. SOCIAL HISTORY: She is and her is here with her. 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 No smoking or alcohol. REVIEW OF SYSTEMS: Positive for the racing heart, also snoring and daytime fatigue and right hip pain. No fever, sore throat. No bowel or bladder issues. Positive weight gain. OBJECTIVE: VITAL SIGNS: Height 69 inches, weight 373.46 pounds, noted in July her weight was 282 pounds, her blood pressure 115/76, pulse 80, initially her heart rate was 175 with a blood pressure of 122/110. GENERAL: She has a significantly thinning hair. Color is slightly pale. HEENT: Her tongue was moist, large tongue relative to small posterior pharynx. NECK: Short. LUNGS: Clear. CARDIOVASCULAR: Regular rhythm and rate with a 1-2/6 systolic murmur. ABDOMEN: Large, obese, nontender. EXTREMITIES: She has some high upper right hip pain. The right leg looks a little bit bigger than the left. She has large, obese legs. LABORATORY DATA: CBC unremarkable. Her TSH is 5.858. D-dimer was 3.02. Urine, 11-20 white cells, large leukocyte esterase, moderate squamous epithelial cells. CT of the chest shows 2 cm density, possibly a nodule of the left over lobe along the outer surface of the left upper pulmonary artery, which appears to be associated with a nonocclusive pulmonary thromboembolism. ASSESSMENT: 1. She has a nonocclusive pulmonary thromboembolism on the left. Supraventricular tachycardia. 2. Diffuse pulmonary mosaic attenuation. She has a wedge-shaped lucency, which also could be due to thromboembolism and she also has splenomegaly. 3. Splenomegaly. 4. Morbid obesity. 5. History of seizure disorder, stable, present on admission. 6. Hypertension. 7. Abnormal TSH, need to check free T4 and T3. 8. Type 2 diabetes. 9. Untreated sleep apnea. 10. Questionable urinary tract infections. PLAN: She received the dose of Lovenox. The patient was started on Eliquis today. We will see the manager distribution and also questionable UTIs and we will await the results of the culture. SHONA THOMAS DO DR: MARIO/herve JOB#: [id number] / [id number]
[2017-07-09] MEDS ORDERED: DILT180C2 PO (15:01)
[2017-07-09] MEDS ORDERED: APIX5TAB3 PO ×3 (15:10→15:11)
[2017-07-09] MEDS ORDERED: metFORMIN 500 MG TABLET PO SCH (17:00)
[2017-07-09] MEDS ORDERED: ATORVASTATIN CALCIUM 20 MG TABLET PO SCH (21:00)
--- NOTE | 2017-07-10 07:42 | EKG ---
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
--- NOTE | 2017-07-10 07:43 | EKG ---
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
[2017-07-10] MEDS ORDERED: SPIRONOLACTONE 25 MG TABLET PO SCH (11:45)
--- NOTE | 2017-07-10 15:30 | DS ---
DATE OF DISCHARGE: 07/09/2017 History and physical on 07/09/2017 and then later on the day was discharged and cleared by Dr. Padron. DISCHARGE DIAGNOSES: 1. Pulmonary embolism, left. 2. Supraventricular tachycardia. 3. Splenomegaly. 4. Morbid obesity. 5. History of seizure disorder. 6. Hypertension. 7. Mildly abnormal TSH. 8. Type 2 diabetes. 9. Untreated sleep apnea. 10. Negative urinary tract infection. PLAN: She will be discharged on Eliquis and will follow up as an outpatient. Please see discharge instructions. SHONA THOMAS DO DR: MARIO/herve JOB#: [id number] / [id number]
[2017-07-11] MEDS ORDERED: metFORMIN 500 MG TABLET PO SCH (08:00)
== END 2017-07-09 15:55 | disposition home or self-care (01) ==
LOC: ER 00:17 → 1 SOUTH 05:46
PROVIDERS: ADMIT Family Medicine; ATTEND Family Medicine
DX: I26.99 Other pulmonary embolism without acute cor pulmonale (principal); I47.1 Supraventricular tachycardia; R42 Dizziness and giddiness; G40.909 Epilepsy, unspecified, not intractable, without status epilepticus; G47.30 Sleep apnea, unspecified; I10 Essential (primary) hypertension; E11.9 Type 2 diabetes mellitus without complications; E78.5 Hyperlipidemia, unspecified; F32.9 Major depressive disorder, single episode, unspecified; E03.9 Hypothyroidism, unspecified; E66.01 Morbid (severe) obesity due to excess calories; R16.1 Splenomegaly, not elsewhere classified; R94.6 Abnormal results of thyroid function studies; Z23 Encounter for immunization
CPT/HCPCS: 36415; 71010; 71275; 80048; 80053; 80076; 80307; 81001; 82553; 82947; 83690; 83735; 83880; 84439; 84443; 84480; 84484; 85025; 85379; 85610; 85730; 87086; 90471; 90732; 93005; 96361; 96365; 96366; 96372; 96375; 99285; G0378; G0379; J0153; J1650; J3475; J3490; Q9967; G0479; J7030

== ENCOUNTER → 2017-09-06 | Outpatient (CLI) | payer OTHER ==
[~2017-09-06] MED LIST changes: +APIX5TAB3 PO; +DILT180C2 PO; +LISI-334 PO; +SERT100T8 PO; +SPIR25TA3 PO
--- NOTE | 2017-09-06 10:03 | RAD ---
Bilateral lower extremity venous duplex ultrasound. 09/06/2017 10:01 AM Indication: Lower extremity cramping and spasm. History of pulmonary embolism. 07-09-17 Comparison study: None available Discussion: Sonographic evaluation of the deep veins of the bilateral lower extremities was performed. This includes grayscale imaging and color duplex imaging with spectral analysis. No evidence of deep venous thrombosis is seen. Interrogated veins are compressible and demonstrate augmentable blood flow and color Doppler imaging. Impression: No evidence of deep venous thrombosis involving either lower extremity.
--- NOTE | 2017-09-06 10:11 | RAD ---
Indication: Chronic right hip pain. Time of exam 0941 hours. 3 views of the right hip were obtained. Femoral acetabular alignment is normal. 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 There is complete loss of the superior joint space. There is sclerosis and subchondral cyst formation involving the acetabular roof. The femoral head and neck are intact. No fractures are seen. Impression: Severe degenerative changes of the right hip. No acute abnormality is detected.
== END | disposition home or self-care (01) ==
LOC: US 08:31
PROVIDERS: ATTEND Specialist
DX: M16.11 Unilateral primary osteoarthritis, right hip (principal); I26.99 Other pulmonary embolism without acute cor pulmonale; R25.2 Cramp and spasm
CPT/HCPCS: 73502; 93970

== ENCOUNTER 2018-03-01 09:42 | Emergency (ER) | payer OTHER ==
[~2018-03-01] VITALS: Ht 172.7 cm; Wt 162.8 kg
[~2018-03-01 09:42] MED LIST changes: -METF500T4 PO; +METF500T5 PO; -SPIR25TA3 PO; +SPIR25TA5 PO; -SPIR50TA2 PO; +SPIR50TA4 PO
[2018-03-01] MEDS ORDERED: ADENOSINE 6 MG/2 ML VIAL IV ONE ×3 (09:51→10:30)
--- NOTE | 2018-03-01 09:53 | EKG ---
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
--- NOTE | 2018-03-01 10:10 | EKG ---
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
--- NOTE | 2018-03-01 10:24 | ED.ADGEN ---
Past History Past Medical History: Arrhythmia, CHF, Depression, Diabetes, Hypertension, Seizure Past Surgical History: Other Alcohol Use: None Drug Use: None Adult General Chief Complaint Chief Complaint Palpitations HPI HPI Patient is a 47-year-old female with history of SVT presents acute onset palpitations 2 hours prior to ED arrival. Patient states she was driving the car and had a headache which triggered her palpitations. Palpitations are fast and pounding and have been continuous. Patient reports feeling a loose occasional dizzy and lightheaded. Patient has been treating her SVT with breathing without success. Previous really responded to adenosine. No chest pain. No other acute symptoms or complaints. SVT on ED arrival [] Review of Systems Review of Systems ROS as per HPI All other systems were reviewed and found to be within normal limits, except as documented in this note. Current Medications Current Medications Current Medications Medications (Trade) Dose Ordered Sig/[place] Start Time Stop Time Status Last Admin Dose Admin Adenosine (Adenocard) 6 mg STK-MED ONCE 03/01/18 09:51 03/01/18 09:52 DC Allergies Allergies Allergies Coded Allergies Type Severity Reaction Last Updated Verified No Known Drug Allergies 04/22/16 No Physical Exam Physical Exam Constitutional: Well developed, well nourished, no acute distress.[] HENT: Normocephalic, atraumatic, bilateral external ears normal, oropharynx moist,, nose normal. [] Eyes: PERRLA, EOMI, conjunctiva normal, no discharge. [] Neck: Normal range of motion. [] Cardiovascular: Tachycardic[] Lungs & Thorax: Bilateral breath sounds clear. [] Abdomen: Bowel sounds normal, no pain.. [] Skin: Warm, dry. [] Back: No tenderness. [] Extremities: No tenderness. [] Neurologic: Alert and oriented X 3, normal motor function, normal sensory function, no focal deficits noted. [] Psychologic: Affect, anxious] EKG EKG EKG: SVT, rate 182. [EKG: Sinus tach, rate 105, no acute ST-T wave changes] Radiology/Procedures Radiology/Procedures [] Course & Med Decision Making Course & Med Decision Making Pertinent Labs and Imaging studies reviewed. (See chart for details) [SVT, flew treated with one dose of adenosine. Electrolytes, troponin negative. Patient observed remains asymptomatic. DC home with scheduled cardiology follow up.] Final Impression Final Impression [1: PSVT] Rose Disclaimer Rose Disclaimer This electronic medical record was generated, in whole or in part, using a voice recognition dictation system. SAMMY RAMIREZ DO Mar 01, 2018 10:24
[2018-03-01] MEDS ORDERED: IV NORMAL SALINE 1,000ML 1,000 ML IV ONE (10:30)
[2018-03-01 10:38] LABS: HEMOGLOBIN ISTAT 14.3 gm/dL; POTASSIUM ISTAT 4.3 mmol/L (3.5-5.0)
[2018-03-01 10:41] VITALS: BP 118/59
== END 2018-03-01 10:51 | disposition home or self-care (01) ==
LOC: ER 09:42
DX: I47.1 Supraventricular tachycardia (principal); I11.0 Hypertensive heart disease with heart failure; I50.9 Heart failure, unspecified; E11.9 Type 2 diabetes mellitus without complications
CPT/HCPCS: 36415; 80047; 84484; 85014; 85018; 93005; 96361; 96374; 99284; J0153; J7030

== ENCOUNTER 2018-04-03 09:27 | Emergency (ER) | payer OTHER ==
[~2018-04-03] VITALS: Ht 172.7 cm; Wt 169.4 kg
[2018-04-03] MEDS ORDERED: ADENOSINE 6 MG/2 ML VIAL IV ONE ×3 (09:30→11:00)
[2018-04-03 09:59] LABS: BASO # 0.1 x10^3/uL (0.0-0.2); BASO % 1 % (0-3); EOS # 0.2 x10^3/uL (0.0-0.7); EOS % 1 % (0-3); HEMATOCRIT 41.9 % (36.0-47.0); HEMOGLOBIN 13.8 g/dL (12.0-15.5); LYMPH # 3.5 x10^3/uL (1.0-4.8); LYMPH % 25 % (24-48); MEAN CORPUSCULAR HEMOGLOBIN 28 pg (25-35); MEAN CORPUSCULAR HGB CONC 33 g/dL (31-37); MEAN CORPUSCULAR VOLUME 86 fL (79-100); MONO # 0.7 x10^3/uL (0.0-1.1); MONO % 5 % (0-9); NEUT # 9.7 x10^3uL (1.8-7.7); NEUT % 68 % (31-73); PLATELET COUNT 447 x10^3/uL (140-400); RED CELL DISTRIBUTION WIDTH 15.3 % (11.5-14.5); WHITE BLOOD COUNT 14.2 x10^3/uL (4.0-11.0)
--- NOTE | 2018-04-03 10:01 | PHYS DOC ---
Past History Past Medical History: Depression, Diabetes, High Cholesterol, Hypertension, Hypothyroid, Other Past Surgical History: Other Alcohol Use: None Drug Use: None Adult General Chief Complaint Chief Complaint: RAPID HEART RATE HPI HPI Patient is a very pleasant morbidly obese 48-year-old female who presents for evaluation tachycardia. She has a history of recurrent episodes of SVT which have required chemical cardioversion with adenosine. 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 She try to perform Valsalva maneuvers with no assessed. She is alert and oriented 4, calm, and appears to be in no distress. She denies chest pain, shortness of breath, fevers or chills, dizziness or syncope. Review of Systems Review of Systems Constitutional: Denies fever or chills [] Eyes: Denies change in visual acuity, redness, or eye pain [] HENT: Denies nasal congestion or sore throat [] Respiratory: Denies cough or shortness of breath [] Cardiovascular: No additional information not addressed in HPI [] +tachycardia, heart pounding GI: Denies abdominal pain, nausea, vomiting, bloody stools or diarrhea [] : Denies dysuria or hematuria [] Musculoskeletal: Denies back pain or joint pain [] Integument: Denies rash or skin lesions [] Neurologic: Denies headache, focal weakness or sensory changes [] Endocrine: Denies polyuria or polydipsia [] All other systems were reviewed and found to be within normal limits, except as documented in this note. Current Medications Current Medications Current Medications Medications (Trade) Dose Ordered Sig/[facility] Start Time Stop Time Status Last Admin Dose Admin Adenosine (Adenocard) 6 mg 1X ONCE 04/03/18 10:15 04/03/18 10:16 Allergies Allergies Allergies Coded Allergies Type Severity Reaction Last Updated Verified No Known Drug Allergies 03/01/18 No Physical Exam Physical Exam Constitutional: Well developed, well nourished, no acute distress, non-toxic appearance. [] HENT: Normocephalic, atraumatic, bilateral external ears normal, oropharynx moist, no oral exudates, nose normal. [] Eyes: PERRLA, EOMI, conjunctiva normal, no discharge. [] Neck: Normal range of motion, no tenderness, supple, no stridor. [] Cardiovascular: no murmur [] +tachycardia Lungs & Thorax: Bilateral breath sounds clear to auscultation [] Abdomen: Bowel sounds normal, soft, no tenderness, no masses, no pulsatile masses. [] Skin: Warm, dry, no erythema, no rash. [] Back: No tenderness, no CVA tenderness. [] Extremities: No tenderness, no cyanosis, no clubbing, ROM intact, no edema. [] Neurologic: Alert and oriented X 3, normal motor function, normal sensory function, no focal deficits noted. [] Psychologic: Affect normal, judgement normal, mood normal. [] EKG EKG @0937: SVT, rate of 175, no acute ischemic findings, normal axis, no STEMI, reviewed and interpreted by myself @0954: Normal sinus rhythm, rate of 99, normal axis, normal intervals, no acute ischemic findings, no STEMI Radiology/Procedures Radiology/Procedures [] Course & Med Decision Making Course & Med Decision Making Pertinent Labs and Imaging studies reviewed. (See chart for details) @0952 - Pt given adenosine 6mg IV with no response. Pt then given 12mg adenosine IV and converted to a NSR. @1215 - magnesium was noted to be low which could lead to additional episodes of SVT so magnesium bolus was ordered and is now completed. The patient has no complaints and would like to go home. She is in a normal sinus rhythm at this time. Dragon Disclaimer Dragon Disclaimer This electronic medical record was generated, in whole or in part, using a voice recognition dictation system. Departure Departure: Impression: Primary Impression: SVT (supraventricular tachycardia) Additional Impression: Hypomagnesemia Disposition: 01 HOME, SELF-CARE Condition: STABLE Referrals: FÁTIMA ARGUELLO MD (PCP) Patient Instructions: Supraventricular Tachycardia Additional Instructions: Avoid any [id number] stimulants or excess caffeine. See provided documents for additional information. Follow-up with your doctor in the next 2- 3 days. Return to the emergency department for new or worsening symptoms. Problem Qualifiers JANE TRIPP DO Apr 03, 2018 10:01
[2018-04-03 10:49] LABS: ALBUMIN 2.8 g/dL (3.4-5.0); ALBUMIN/GLOBULIN RATIO 0.6 (1.0-1.7); CALCIUM 8.7 mg/dL (8.5-10.1); CREATININE 1.4 mg/dL (0.6-1.0); GFR 40.3; MAGNESIUM 1.6 mg/dL (1.8-2.4); POTASSIUM 4.2 mmol/L (3.5-5.1); TOTAL BILIRUBIN 0.3 mg/dL (0.2-1.0); TOTAL PROTEIN 7.2 g/dL (6.4-8.2)
[2018-04-03] MEDS ORDERED: MAGNESIUM SULFATE 2GM 50 ML IV ONE (11:30)
--- NOTE | 2018-04-03 12:19 | EKG ---
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
[2018-04-03 12:22] VITALS: BP 128/72
--- NOTE | 2018-04-03 12:24 | EKG ---
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
== END 2018-04-03 12:28 | disposition home or self-care (01) ==
LOC: ER 09:27
DX: I47.1 Supraventricular tachycardia (principal); E83.42 Hypomagnesemia; E11.9 Type 2 diabetes mellitus without complications; E78.00 Pure hypercholesterolemia, unspecified; I10 Essential (primary) hypertension; E03.9 Hypothyroidism, unspecified; F32.9 Major depressive disorder, single episode, unspecified
CPT/HCPCS: 36415; 80053; 83735; 85025; 93005; 96365; 96375; 99285; J0153; J3475

== ENCOUNTER → 2018-05-18 | Outpatient (CLI) | payer OTHER ==
[~2018-05-18] MED LIST changes: +IOHEXOL 300 MG/ML 75 ML VIAL. IV ONE
[2018-05-18 09:43] LABS: BASO % 1 % (0-3); EOS # 0.2 x10^3/uL (0.0-0.7); EOS % 2 % (0-3); HEMATOCRIT 39.6 % (36.0-47.0); HEMOGLOBIN 13.3 g/dL (12.0-15.5); LYMPH # 2.2 x10^3/uL (1.0-4.8); LYMPH % 27 % (24-48); MEAN CORPUSCULAR HEMOGLOBIN 28 pg (25-35); MEAN CORPUSCULAR HGB CONC 34 g/dL (31-37); MEAN CORPUSCULAR VOLUME 84 fL (79-100); MONO # 0.4 x10^3/uL (0.0-1.1); MONO % 5 % (0-9); NEUT # 5.2 x10^3uL (1.8-7.7); NEUT % 65 % (31-73); PLATELET COUNT 266 x10^3/uL (140-400); RED BLOOD COUNT 4.69 x10^6/uL (3.50-5.40); RED CELL DISTRIBUTION WIDTH 14.9 % (11.5-14.5); WHITE BLOOD COUNT 8.1 x10^3/uL (4.0-11.0)
[2018-05-18 09:51] LABS: CREATININE 1.1 mg/dL (0.6-1.0); GFR 53.2
[2018-05-18] MEDS: IOHEXOL 300 MG/ML 75 ML VIAL. IV ONE (10:29)
--- NOTE | 2018-05-18 11:02 | RAD ---
CT ANGIOGRAPHY CHEST dated 05/18/2018 10:20 AM Indication:. Chest painCHEST PAIN, HX OF PE. 60MLS OMNI 300 IV CONTRAST. Comparison: 07/09/2017 Technique: Contiguous axial imaging the chest performed following the intravenous demonstration of 60 cc Omnipaque 300. Study was performed as dedicated PE protocol with thin cut coronal MIPS reconstructions. One or more of the following individualized dose reduction techniques were utilized for this examination: 1. Automated exposure control 2. Adjustment of the mA and/or kV according to patient size 3. Use of iterative reconstruction technique Findings: Contrast bolus is adequate. No evidence of central, lobar or segmental pulmonary embolus. Subsegmental branches are not well evaluated based on technique. Heart size within normal limits. No pericardial effusion. Mildly enlarged left hilar lymph node measures 1.4 cm short axis, not significantly changed from prior study given differences in technique. No mediastinal or axillary adenopathy. Asymmetric prominence of the left lobe thyroid gland, unchanged. Central airways are patent. Lungs are clear without focal consolidation. Vascular interstitium within normal limits. No pleural effusion or pneumothorax. Limited images of upper abdomen unremarkable. Mild splenomegaly, unchanged. No significant bony abnormality. IMPRESSION: 1. No evidence of central, lobar or segmental pulmonary embolus. 2. Soft tissue prominence of the upper left hilum along the undersurface of the left upper lobe pulmonary artery does not appear to have significantly changed in size from prior study and likely represents an enlarged lymph node. Recommend six-month follow-up imaging to ensure stability and exclude a slow-growing mass. 3. Clear lungs. 4. Mild splenomegaly, unchanged. Electronically signed by: Jose Pozo MD (05/18/2018 10:59 AM) [id number]
== END | disposition home or self-care (01) ==
LOC: CT 09:06
PROVIDERS: ATTEND Internal Medicine Pulmonary Disease
DX: R16.1 Splenomegaly, not elsewhere classified (principal); I11.0 Hypertensive heart disease with heart failure; I50.9 Heart failure, unspecified; E11.9 Type 2 diabetes mellitus without complications; E78.5 Hyperlipidemia, unspecified; E78.00 Pure hypercholesterolemia, unspecified; M16.11 Unilateral primary osteoarthritis, right hip; E03.9 Hypothyroidism, unspecified; J44.9 Chronic obstructive pulmonary disease, unspecified; E87.6 Hypokalemia; Z90.710 Acquired absence of both cervix and uterus; Z86.711 Personal history of pulmonary embolism
CPT/HCPCS: 36415; 71275; 82565; 84520; 85025; 85379; Q9967

== ENCOUNTER → 2018-07-25 | Outpatient (CLI) | payer OTHER ==
[~2018-07-25] MED LIST changes: -IOHEXOL 300 MG/ML 75 ML VIAL. IV ONE; +METF500T16 PO; -METF500T5 PO
--- NOTE | 2018-07-25 11:24 | CARD ---
MR#: [id number] Date of Study: 07/25/2018 Ordering Physician: LINDY FIGUEROA, Referring Physician: LINDY FIGUEROA, Tech: Nikki Weber RUTHIE APPROVED REPORT EXAM: Two-dimensional and M-mode echocardiogram with Doppler and color Doppler. Other Information Quality : Good INDICATION SVT RISK FACTORS Obesity 2D DIMENSIONS RVDd3.2 (2.9-3.5cm)Left Atrium(2D)3.6 (1.6-4.0cm) IVSd1.1 (0.7-1.1cm)Aortic Root(2D)2.8 (2.0-3.7cm) LVDd4.9 (3.9-5.9cm)LVOT Diameter2.0 (1.8-2.4cm) PWd0.9 (0.7-1.1cm)LVDs3.5 (2.5-4.0cm) FS (%) 28.9 %SV62.8 ml LVEF(%)55.5 (>50%) Aortic Valve AoV Peak Claudio.166.7cm/sAoV VTI30.4cm AO Peak GR.11.1mmHgLVOT Peak Claudio.152.8cm/s LVOT VTI 28.55cmAO Mean GR.7mmHg BA (VMAX)2.29ee1GUC (VTI)3.01cm2 Mitral Valve MV E Tuvishks93.5cm/sMV DECEL [id number] MV A Hinwkedn11.5cm/sE/A Ratio0.8 Tricuspid Valve TR P. Cuvebktx130do/sRAP [id number] TR Peak Gr.06laYaNBZU95vzHg Pulmonary Vein S1 Qxrhlpnk54.2cm/sD2 Fhasqimi20.1cm/s LEFT VENTRICLE The left ventricle is normal size. There is normal left ventricular wall thickness. The left ventricu lar systolic function is normal and the ejection fraction is within normal range. The Ejection Fracti on is 55-60%. There is normal LV segmental wall motion. Transmitral Doppler flow pattern is Grade I-a bnormal relaxation pattern. RIGHT VENTRICLE The right ventricle is normal size. The right ventricular systolic function is normal. ATRIA The left atrium size is normal. The right atrium size is normal. The interatrial septum is intact wit h no evidence for an atrial septal defect or patent foramen ovale as noted on 2-D or Doppler imaging. AORTIC VALVE The aortic valve is not well visualized but appears to be functioning normally by Doppler interrogati on. Doppler and Color Flow revealed no significant aortic regurgitation. There is no significant aort ic valvular stenosis. MITRAL VALVE The mitral valve is normal in structure. There is no evidence of mitral valve prolapse. There is no m itral valve stenosis. Doppler and Color-flow revealed trace mitral regurgitation. TRICUSPID VALVE The tricuspid valve is normal in structure and function. Doppler and Color Flow revealed trace tricus pid regurgitation. The PA pressure was estimated at 38 mmHg. There is no tricuspid valve stenosis. PULMONIC VALVE The pulmonic valve is not well visualized. GREAT VESSELS The aortic root is normal in size. The ascending aorta is not well seen. The IVC is normal in size an d collapses >50% with inspiration. PERICARDIAL EFFUSION There is no evidence of significant pericardial effusion. Critical Notification Critical Value: No <Conclusion> The left ventricular systolic function is normal and the ejection fraction is within normal range. Th e Ejection Fraction is 55-60%. There is normal LV segmental wall motion. Doppler and Color Flow revealed trace tricuspid regurgitation. The PA pressure was estimated at 38 m mHg. Signed by : Lindy Figueroa, Electronically Approved : 07/25/2018 11:23:37
== END | disposition home or self-care (01) ==
LOC: ECHO 07:37
PROVIDERS: ATTEND Internal Medicine Cardiovascular Disease
DX: I47.1 Supraventricular tachycardia (principal); I07.1 Rheumatic tricuspid insufficiency; I11.0 Hypertensive heart disease with heart failure; I50.9 Heart failure, unspecified; E78.5 Hyperlipidemia, unspecified; E03.9 Hypothyroidism, unspecified; J44.9 Chronic obstructive pulmonary disease, unspecified; E11.9 Type 2 diabetes mellitus without complications
CPT/HCPCS: 93306

== ENCOUNTER → 2019-05-25 | Outpatient (CLI) | payer OTHER ==
--- NOTE | 2019-05-25 09:01 | RAD ---
EXAM: CT Chest with IV contrast CLINICAL HISTORY: Lung nodule follow-up . COMPARISON: CT chest 05/18/2018, 07/09/2017 TECHNIQUE: CT of the chest following the administration of intravenous contrast. Axial, coronal and sagittal reformatted images were generated. ---PQRS compliance statement - One or more of the following individualized dose reduction techniques were utilized for this study: 1. Automated exposure control 2. Adjustment of the mA and/or kV according to patient size 3. Use of iterative reconstruction technique--- FINDINGS: CHEST: Heart is not enlarged. No pericardial effusion. No pleural effusion or pneumothorax. No mediastinal, hilar or axillary lymphadenopathy. Given the perivascular nature of the lung nodule seen on prior CT, accurate measurement is limited given currently noncontrast study. Morphologically however the size is grossly similar to prior examination. No definite new lung nodule is seen. Visualized Upper abdomen: Right adrenal myelolipoma is seen. Bones: Osseous structures are stable. IMPRESSION: 1. The previously seen left perivascular nodule/lymph node is not well delineated on today's noncontrast examination. However morphologically appears grossly stable in size. Consider one-year follow-up CT with contrast to ensure stability. Electronically signed by: Jonah Ramirez MD (05/25/2019 8:58 AM) [facility]
== END | disposition home or self-care (01) ==
LOC: CT 07:57
PROVIDERS: ATTEND Internal Medicine Pulmonary Disease
DX: R91.1 Solitary pulmonary nodule (principal)
CPT/HCPCS: 71250